=== PATIENT | female | born 1965 | race Caucasian/White ===

== ENCOUNTER 2020-11-09 18:48 | Emergency (ER) | payer MEDICAID ==
[~2020-11-09] VITALS: Ht 160 cm; Wt 68.0 kg
[2020-11-09 18:53] VITALS: BP 123/67
--- NOTE | 2020-11-09 18:53 | NUR ---
TO BED AMBULATORY
--- NOTE | 2020-11-09 19:11 | NUR ---
55YO F C/O SOB, COUGH, THROAT PAIN AND COUGH X 3 DAYS. PER PATIENT, SHE NOTICED HER SYMPTOMS AFTER GETTING HER HEP B VACCINE LAST 11/06/20. IN ED, VSS. PATIENT NOT IN DISTRESS. CLEAR BREATH SOUNDS. PT POSITIONED COMFORTABLY IN BED WITH 2 SIDERAILS UP. ERMD MADE AWARE OF PT STATUS. PMH: ASTHMA MEDS: VENTOLIN NKA
[2020-11-09] MEDS: predniSONE 20 MG TAB PO ONE (19:31)
[2020-11-09 19:44] LABS: BASOPHILS # (AUTO) 0.1 K/uL (0.00-0.22); BASOPHILS % (AUTO) 0.6 % (0.0-2.0); EOSINOPHILS # (AUTO) 0.4 K/uL (0-0.4); EOSINOPHILS % (AUTO) 3.8 % (0.0-4.0); HEMATOCRIT 40.9 % (36-48); LYMPHOCYTES # (AUTO) 2.6 K/uL (2.5-16.5); LYMPHOCYTES % (AUTO) 26.7 % (20.5-51.1); MEAN CORPUSCULAR HEMOGLOBIN 30 pg (27-31); MEAN CORPUSCULAR HGB CONC 34 g/dL (33-37); MEAN CORPUSCULAR VOLUME 88.5 fL (80-94); MONOCYTES # (AUTO) 0.8 K/uL (0.8-1.0); NEUTROPHILS % (AUTO) 60.9 % (42.2-75.2); PLATELET COUNT (AUTO) 251 K/uL (140-450); RED BLOOD CELL COUNT(AUTO) 4.63 MIL/uL (4.20-5.40); RED CELL DISTRIBUTION WIDTH 13.3 % (11.6-13.7); WHITE BLOOD COUNT (AUTO) 9.9 K/uL (4.8-10.8)
[2020-11-09 19:54] LABS: ANION GAP 10.3 (8-16); CARBON DIOXIDE 26.2 mmol/L (21-32); CREATININE 0.8 mg/dL (0.6-1.3); POTASSIUM 3.5 mmol/L (3.5-5.1)
[2020-11-09] MEDS ORDERED: PRED20TA5 PO (20:17)
[2020-11-09] MEDS: ALBUTEROL HFA MDI 90 MCG/ACTUATION 8 GM INH ONE (20:45)
[2020-11-09 20:55] VITALS: BP 123/67
== END 2020-11-09 20:55 | disposition home or self-care (01) ==
LOC: MED 18:48
DX: J40 Bronchitis, not specified as acute or chronic (principal); J45.909 Unspecified asthma, uncomplicated
CPT/HCPCS: 36415; 71045; 80048; 84484; 85025; 94664; 99284; J7512

== ENCOUNTER 2021-10-28 11:13 | Emergency (ER) | payer MEDICAID ==
[~2021-10-28] VITALS: Ht 160 cm; Wt 74.4 kg
[~2021-10-28 11:13] MED LIST: PRED20TA5 PO
[2021-10-28 11:23] VITALS: BP 134/65
--- NOTE | 2021-10-28 12:00 | NUR ---
56 Y/O FEMALE BIB SELF C/O 03/24 PAIN IN THE RIGHT LEG/KNEE. STATES THAT SHE GOES TO PT SATRTED ON 09/12/21 AND FELL ON THURSDAY. DENIES ANY MEDICATION FOR PAIN. FULL ROM NOTED ON EXTREMITY NKA PMH: HYPERCHOLESTEROL, HTN
[2021-10-28] MEDS ORDERED: TRAM50TA1 PO (12:29)
[2021-10-28] MEDS ORDERED: NAPR-1704 PO (12:29)
--- NOTE | 2021-10-28 12:56 | NUR ---
Patient discharged with v/s stable. Written and verbal after care instructions ABOUT ACUTE KNEE PAIN given and explained. Patient verbalized understanding. Ambulatory with steady gait. All questions addressed prior to discharge. Advised to follow up with PMD.
== END 2021-10-28 12:56 | disposition home or self-care (01) ==
LOC: MED 11:13
DX: S83.91XA Sprain of unspecified site of right knee, initial encounter (principal); J45.909 Unspecified asthma, uncomplicated; X58.XXXA Exposure to other specified factors, initial encounter; Y93.89 Activity, other specified; Y92.89 Other specified places as the place of occurrence of the external cause; Y99.8 Other external cause status
CPT/HCPCS: 73590; 99283; Q0092

== ENCOUNTER 2022-03-31 16:18 | Emergency (ER) | payer MEDICAID, OTHER ==
[~2022-03-31] VITALS: Ht 149.9 cm; Wt 75.7 kg
[~2022-03-31 16:18] MED LIST changes: +NAPR-1704 PO; +TRAM50TA1 PO
[2022-03-31 16:55] VITALS: BP 132/83
--- NOTE | 2022-03-31 17:54 | NUR ---
56YO FEMALE PT C/O HEADACHE X4DAYS. STATES INCREASED FATIGUENESS. MILD RELIEF AFTER TAKING TYLENOL. DNIEES NUMBING OR LOSS OF SENSATION. DENIES N/V/D, CHEST PAIN OR SOB. ALSO C/O R KNEE PAIN , STATES INJURING HERSELF AT WORK CAUSING A TORN MENISCUS W/ NO RELIEF AFTER TX BY PCP. PT AAOX4, RESPIRATIONS EVEN AND UNLABORED. HOB POSITIONED PER COMFORT.AZERI SPEAKING HX:DENIES NKA
--- NOTE | 2022-03-31 17:55 | NUR ---
PT AMBULATED TO ROOM 7
--- NOTE | 2022-03-31 18:18 | NUR ---
MD SHELDON AT BEDSIDE FOR EVALUATION
[2022-03-31] MEDS ORDERED: diphenhydrAMINE 50 MG/ML VIAL IVP ONE (18:20)
[2022-03-31] MEDS ORDERED: ONDANSETRON 4 MG/2 ML VIAL IVP ONE (18:20)
[2022-03-31] MEDS ORDERED: NACL 0.9% 1,000 ML IV ONE (18:20)
[2022-03-31] MEDS ORDERED: KETOROLAC 30 MG/ML VIAL IVP ONE (18:20)
[2022-03-31] MEDS ORDERED: ONDA-188 PO (19:19)
[2022-03-31] MEDS ORDERED: IBUP-2213 PO (19:19)
--- NOTE | 2022-03-31 19:22 | NUR ---
REPORT GIVEN TO PHILIP MAC. ALL QUESTIONS ANSWERED. TRANSFER OF CARE AT THIS TIME
[2022-03-31 20:48] VITALS: BP 122/58
== END 2022-03-31 20:45 | disposition home or self-care (01) ==
LOC: MED 16:18
DX: R51.9 Headache, unspecified (principal); I10 Essential (primary) hypertension; Z79.899 Other long term (current) drug therapy
CPT/HCPCS: 81002; 81025; 93005; 96361; 96374; 96375; 99284; J1200; J1885; J2405; J7030

== ENCOUNTER 2022-06-13 17:58 | Emergency (ER) | payer OTHER ==
[~2022-06-13] VITALS: Ht 149.9 cm; Wt 77.1 kg
[~2022-06-13 17:58] MED LIST changes: +IBUP-2213 PO; +ONDA-188 PO; +TRAM-748 PO; -TRAM50TA1 PO
[2022-06-13 18:05] VITALS: BP 115/74
[2022-06-13 19:11] LABS: BASOPHILS # (AUTO) 0.1 K/uL (0.00-0.22); BASOPHILS % (AUTO) 0.8 % (0.0-2.0); EOSINOPHILS # (AUTO) 0.2 K/uL (0-0.4); EOSINOPHILS % (AUTO) 2.2 % (0.0-4.0); HEMATOCRIT 42.3 % (36-48); HEMOGLOBIN 14.5 g/dL (12.0-16.0); LYMPHOCYTES # (AUTO) 2.5 K/uL (2.5-16.5); LYMPHOCYTES % (AUTO) 26.8 % (20.5-51.1); MEAN CORPUSCULAR HEMOGLOBIN 30 pg (27-31); MEAN CORPUSCULAR HGB CONC 34 g/dL (33-37); MEAN CORPUSCULAR VOLUME 87.4 fL (80-94); MONOCYTES # (AUTO) 0.7 K/uL (0.8-1.0); MONOCYTES % (AUTO) 7.7 % (1.7-9.3); NEUTROPHILS # (AUTO) 5.8 K/uL (1.8-7.7); NEUTROPHILS % (AUTO) 62.5 % (42.2-75.2); PLATELET COUNT (AUTO) 279 K/uL (140-450); RED BLOOD CELL COUNT(AUTO) 4.84 MIL/uL (4.20-5.40); RED CELL DISTRIBUTION WIDTH 12.9 % (11.6-13.7); WHITE BLOOD COUNT (AUTO) 9.2 K/uL (4.8-10.8)
[2022-06-13 19:37] LABS: ALBUMIN 3.2 g/dL (3.4-5.0); ANION GAP 13.4 (8-16); ASPARTATE AMINOTRANSFERASE 16 U/L (15-37); CARBON DIOXIDE 27.1 mmol/L (21-32); CHLORIDE 104 mmol/L (98-107); CREATININE 0.7 mg/dL (0.6-1.3); GFR ARICAN-AMERICAN 111 mL/min (>90); GLUCOSE 131 mg/dL (74-106); POTASSIUM 3.5 mmol/L (3.5-5.1); SODIUM SERUM 141 mmol/L (136-145); TOTAL BILIRUBIN 0.3 mg/dL (0.0-1.0); UREA NITROGEN, BLOOD 12 mg/dL (7-18)
--- NOTE | 2022-06-13 20:54 | NUR ---
COVID AND FLU SWABS COLLECTED AND SENT TO LAB
--- NOTE | 2022-06-13 21:02 | NUR ---
PT TO BED #2
[2022-06-13] MEDS ORDERED: ALBUTEROL 0.083% 2.5 MG/3 ML NEBU INH ONE (21:20)
[2022-06-13] MEDS ORDERED: KETOROLAC 60 MG/2 ML VIAL IM ONE (21:20)
[2022-06-13] MEDS ORDERED: IBUP-2213 PO (21:37)
[2022-06-13] MEDS ORDERED: INHA1SPA24 MC (21:37)
[2022-06-13] MEDS ORDERED: ROBAC PO ×2 (21:37→21:38)
[2022-06-13] MEDS ORDERED: ALBU0.0912 INH (21:37)
[2022-06-13 22:04] VITALS: BP 120/64
--- NOTE | 2022-06-13 22:04 | NUR ---
Patient discharged with v/s stable. Written and verbal after care instructions given and explained. Patient verbalized understanding. Ambulatory with to car. All questions addressed prior to discharge. Advised to follow up with PMD.
== END 2022-06-13 22:04 | disposition home or self-care (01) ==
LOC: MED 17:58
DX: J20.8 Acute bronchitis due to other specified organisms (principal); Z20.822 Contact with and (suspected) exposure to COVID-19; I10 Essential (primary) hypertension; Z79.899 Other long term (current) drug therapy
CPT/HCPCS: 36415; 71045; 80053; 84484; 85025; 87426; 87804; 94644; 96372; 99285; J1885; J7613

== ENCOUNTER 2022-06-17 12:31 | Emergency (ER) | payer OTHER ==
[~2022-06-17] VITALS: Ht 167.6 cm; Wt 77.1 kg
[~2022-06-17 12:31] MED LIST changes: +ALBU0.0912 INH; +INHA1SPA24 MC; +ROBAC PO
[2022-06-17 12:40] VITALS: BP 124/74
[2022-06-17] MEDS ORDERED: ALBUTEROL SULFATE/IPRATROPIU 3 ML SOL IH ONE (13:55)
--- NOTE | 2022-06-17 14:30 | NUR ---
57YO FEMALE PT C/O COUGH , CONGESTION AND BODY ACHES X5DAYS. TIGHT CHEST PAIN ON COUGH. MOIST COUGH PRESENT. PT WAS RECENTLY SEEN IN ER FOR S/S W/O RELIEF FROM RX GIVEN. REPORTS NEW ONSET OF MANASA PRESSURED EAR PAIN xYESTERDAY W/ DECREASE IN HEARING AND DIZZINESS -RINGING. EARS W/O VISIBLE INJURY. RESPIRATIONS EVEN AND UNLABORED. DENIES N/V/D, FEVER OR CHILLS. +FAM SICK AT HOME. 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 HOB POSITIONED PER COMFORT. HX: DENIES NKA
--- NOTE | 2022-06-17 14:37 | NUR ---
RT AT BEDSIDE
[2022-06-17 15:10] VITALS: BP 120/56
[2022-06-17] MEDS ORDERED: PRED20TA5 PO (15:39)
[2022-06-17] MEDS ORDERED: ACET-1194 PO (15:47)
--- NOTE | 2022-06-17 15:55 | NUR ---
Patient discharged with v/s stable. Written and verbal after care instructions FOR ACUTE BRONCHITIS given and explained. Patient alert, oriented and verbalized understanding of instructions. Ambulatory with steady gait. All questions addressed prior to discharge. ID band removed. Patient advised to follow up with PMD. Rx of PREDNISONE given. Opportunity to ask questions provided and answered.
--- NOTE | 2022-06-17 16:03 | NUR ---
The patient's care was reviewed and supervised by Bruce 04 ED, RN.
== END 2022-06-17 15:55 | disposition home or self-care (01) ==
LOC: MED 12:31
DX: J20.9 Acute bronchitis, unspecified (principal); H92.03 Otalgia, bilateral
CPT/HCPCS: 94640; 99285

== ENCOUNTER 2022-06-26 09:18 | Emergency (ER) | payer OTHER ==
[~2022-06-26] VITALS: Ht 160 cm; Wt 77.1 kg
[~2022-06-26 09:18] MED LIST changes: +ACET-1194 PO
[2022-06-26 09:28] VITALS: BP 118/68
[2022-06-26] MEDS ORDERED: NAPROXEN 500 MG TAB PO ONE (09:50)
[2022-06-26 10:08] LABS: BASOPHILS # (AUTO) 0.2 K/uL (0.00-0.22); BASOPHILS % (AUTO) 1.6 % (0.0-2.0); EOSINOPHILS # (AUTO) 0.2 K/uL (0-0.4); EOSINOPHILS % (AUTO) 1.3 % (0.0-4.0); HEMATOCRIT 43.1 % (36-48); HEMOGLOBIN 14.9 g/dL (12.0-16.0); LYMPHOCYTES # (AUTO) 5.1 K/uL (2.5-16.5); LYMPHOCYTES % (AUTO) 40.3 % (20.5-51.1); MEAN CORPUSCULAR HEMOGLOBIN 30 pg (27-31); MEAN CORPUSCULAR HGB CONC 35 g/dL (33-37); MEAN CORPUSCULAR VOLUME 85.6 fL (80-94); MONOCYTES # (AUTO) 0.7 K/uL (0.8-1.0); MONOCYTES % (AUTO) 5.5 % (1.7-9.3); NEUTROPHILS # (AUTO) 6.5 K/uL (1.8-7.7); NEUTROPHILS % (AUTO) 51.3 % (42.2-75.2); PLATELET COUNT (AUTO) 327 K/uL (140-450); RED BLOOD CELL COUNT(AUTO) 5.03 MIL/uL (4.20-5.40); RED CELL DISTRIBUTION WIDTH 13.2 % (11.6-13.7); WHITE BLOOD COUNT (AUTO) 12.7 K/uL (4.8-10.8)
[2022-06-26 10:26] LABS: ALBUMIN 3.6 g/dL (3.4-5.0); ANION GAP 12.7 (8-16); ASPARTATE AMINOTRANSFERASE 4 U/L (15-37); CARBON DIOXIDE 27.9 mmol/L (21-32); CHLORIDE 101 mmol/L (98-107); CREATININE 0.8 mg/dL (0.6-1.3); GFR ARICAN-AMERICAN 95 mL/min (>90); GLUCOSE 225 mg/dL (74-106); POTASSIUM 3.6 mmol/L (3.5-5.1); SODIUM SERUM 138 mmol/L (136-145); TOTAL BILIRUBIN 0.3 mg/dL (0.0-1.0); UREA NITROGEN, BLOOD 23 mg/dL (7-18)
[2022-06-26 11:20] VITALS: BP 109/64
--- NOTE | 2022-06-26 11:20 | NUR ---
Patient discharged with v/s stable. Written and verbal after care instructions given and explained. Patient verbalized understanding. Ambulatory with steady gait. All questions addressed prior to discharge. Advised to follow up with PMD.
== END 2022-06-26 11:20 | disposition home or self-care (01) ==
LOC: MED 09:18
DX: G62.9 Polyneuropathy, unspecified (principal); M79.602 Pain in left arm; R20.0 Anesthesia of skin; R20.2 Paresthesia of skin
CPT/HCPCS: 36415; 71045; 80053; 84484; 85025; 93005; 99285; Q0092; 99282

== ENCOUNTER 2022-07-16 09:38 | Emergency (ER) | payer OTHER ==
[~2022-07-16] VITALS: Ht 162.6 cm; Wt 74.4 kg
[2022-07-16 09:43] VITALS: BP 124/84
--- NOTE | 2022-07-16 09:46 | NUR ---
PT AMB TO BED 8
--- NOTE | 2022-07-16 09:57 | NUR ---
57YO FEMALE PT C/O CONGESTION, PRESSURED HEAD AND MANASA EARACHE X5DAYS. MOIST NON PRODUCTIVE COUGH AND MANASA WHEEZING NOTED . PT STATES BEING COMPLIANT W/ RX AMOXICILLIN X4DAYS ,GIVEN BY PCP W/O RELIEF. EAR W/O VISIBLE INJURY -RINGING OR LOSS OF HEARING . STATES MILD COUGH RELIEF AFTER RX GUAIFENESIN CODEINE. DENIES N/V/D, FEVERS, CHEST PAIN OR SOB. PT AAOX4, RESPIRATIONS EVEN AND UNLABORED. 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 HX: ASTHMA NKA
--- NOTE | 2022-07-16 09:59 | NUR ---
57F presents to ED with c/o bilat ear and head pain, and cough/congestion x5days. Pt reports a constant, pressure like head pain radiating to ears bilaterally. Pt reports being seen by PCP 07/13/22, Rx of Amoxicillin and Guaifenesin, also taking Tylenol with no relief. Pt denies SOB, fevers, N/V/D. Pt changed into gown and placed on bedside monitor.
--- NOTE | 2022-07-16 10:10 | NUR ---
PT TAKEN TO XRAY VIA WHEELCHAIR
--- NOTE | 2022-07-16 10:16 | NUR ---
PT BROUGHT BACK VIA WHEELCHAIR
--- NOTE | 2022-07-16 10:22 | NUR ---
pt swabbed for covid(isaac) and flu. walked and handed to lab
--- NOTE | 2022-07-16 10:32 | NUR ---
MD NIETO AT BEDSIDE FOR EVALUATION
[2022-07-16] MEDS ORDERED: ALBUTEROL 0.083% 2.5 MG/3 ML NEBU INH ONE (10:40)
[2022-07-16] MEDS ORDERED: IBUPROFEN 600 MG TAB PO ONE (10:40)
--- NOTE | 2022-07-16 10:46 | NUR ---
RT AT BEDSIDE FOR TX
[2022-07-16 11:56] VITALS: BP 116/64
[2022-07-16] MEDS ORDERED: PRED20TA5 PO (12:00)
[2022-07-16] MEDS ORDERED: CODE118S PO (12:00)
[2022-07-16] MEDS ORDERED: IBUP-2213 PO (12:00)
[2022-07-16] MEDS ORDERED: predniSONE 20 MG TAB PO ONE (12:05)
[2022-07-16] MEDS ORDERED: ACETAMINOPHEN EXTRA STRENGTH 500 MG TAB PO ONE (12:05)
--- NOTE | 2022-07-16 12:48 | NUR ---
Patient discharged with v/s stable. Written and verbal after care instructions about Acute Bronchitis and asthma given and explained. Patient alert, oriented and verbalized understanding of instructions. Ambulatory with steady gait. All questions addressed prior to discharge. ID band removed. Patient advised to follow up with PMD. Rx of Guaifenesin/Codeine Phosphate, Ibuprofen and Prednisone given. Patient educated on indication of medication including possible reaction and side effects. Opportunity to ask questions provided and answered.
[2022-07-18] MEDS ORDERED: ROB PO (12:29)
== END 2022-07-16 10:30 | disposition home or self-care (01) ==
LOC: MED 09:38
DX: J45.901 Unspecified asthma with (acute) exacerbation (principal); Z20.822 Contact with and (suspected) exposure to COVID-19; J06.9 Acute upper respiratory infection, unspecified
CPT/HCPCS: 71046; 87426; 87804; 94640; 94760; 99284; J7512; J7613

== ENCOUNTER 2023-02-24 14:49 | Emergency (ER) | payer OTHER ==
[~2023-02-24] VITALS: Ht 160 cm; Wt 74.4 kg
[~2023-02-24 14:49] MED LIST changes: +CODE118S PO; +ROB PO
[2023-02-24 15:11] VITALS: BP 129/71; PULSE 69; RESP 18; TEMP 97.3; O2SAT 100
[2023-02-24 15:54] LABS: FLU A ANTIGEN negative (NEGATIVE); FLU B ANTIGEN NEGATIVE (NEGATIVE)
[2023-02-24] MEDS ORDERED: PSEU-250 PO (16:21)
[2023-02-24] MEDS ORDERED: BENZ200C4 PO (16:21)
[2023-02-24] MEDS ORDERED: NAPR-1704 PO (18:28)
[2023-02-24 18:50] VITALS: BP 130/68; PULSE 65; RESP 19; TEMP 97.7; O2SAT 100
== END 2023-02-24 18:50 | disposition home or self-care (01) ==
LOC: MED 14:49
DX: J20.9 Acute bronchitis, unspecified (principal); Z20.822 Contact with and (suspected) exposure to COVID-19; M25.512 Pain in left shoulder; J45.909 Unspecified asthma, uncomplicated; Z79.899 Other long term (current) drug therapy
CPT/HCPCS: 71045; 73030; 99284

== ENCOUNTER 2023-06-22 11:19 | Emergency (ER) | payer OTHER ==
[~2023-06-22] VITALS: Ht 167.6 cm; Wt 68.0 kg
[~2023-06-22 11:19] MED LIST changes: +BENZ200C4 PO; +PSEU-250 PO
[2023-06-22 11:46] VITALS: BP 111/68; PULSE 79; RESP 20; TEMP 98.6; O2SAT 98
[2023-06-22] MEDS ORDERED: ALBU0.0912 IH (12:00)
[2023-06-22] MEDS ORDERED: PROM118S5 PO (12:00)
[2023-06-22 13:24] LABS: FLU A ANTIGEN negative (NEGATIVE); FLU B ANTIGEN negative (NEGATIVE)
== END 2023-06-22 12:35 | disposition home or self-care (01) ==
LOC: MED 11:19
DX: B34.9 Viral infection, unspecified (principal); Z20.822 Contact with and (suspected) exposure to COVID-19; J45.909 Unspecified asthma, uncomplicated; Z79.899 Other long term (current) drug therapy
CPT/HCPCS: 99283